=== PATIENT | female | born 1935 | race Caucasian/White ===

== ENCOUNTER 2018-07-06 05:23 | Day surgery (SDC) | payer MEDICARE, SELFPAY ==
[2018-07-03 14:19] VITALS: BMI 18.7
[2018-07-06] VITALS (10 sets, daily range): BP systolic 114–137; BP diastolic 63–81; PULSE 57–65; RESP 16–58; TEMP 36.1–36.6; O2SAT 99–100; BMI 18.7
--- NOTE | 2018-07-06 | COLBX_PTH ---
PATIENT: HEENA SANTAMARIA LOC: EN U#:[id number] AGE/SX: 83/F ROOM: RE07/06/[address]: Dr. Emile Morales MD : 1935 BED: DIS: 07/06/2018 SPEC #: [id number] RECD: 07/06/18 09:20 STATUS: MORA GUANAKO #: [id number] ARACELI: 07/06/18 00:[address]: Emile Morales DEPT: SURGICAL PATHOLOGY RECD BY: Nils Mcgrath ENTERED: 07/06/18 13:23 SP TYPE: COLON BX OTHR DR: Dr. Matt Gonzalez MD Tissues: Cecum, NOS Procedures: Surgery Specimen Level IV HEADER OPERATION: Colonoscopy (MOD) PRE-OP DIAGNOSIS: Iron deficiency anemia, guaiac positive stool TISSUE SUBMITTED: Cecum mass biopsy MICROSCOPIC DIAGNOSIS Cecum mass, biopsy: Invasive adenocarcinoma. SJ:gosia 07/07/18 COMMENT Please make reference to previous specimen ([id number]) sigmoid colon, uterus, tubes, ovaries and portion of descending colon with diagnosis of invasive well to moderately differentiated adenocarcinoma. Case has been reviewed in consultation with Dr. Torres who concurs with the above diagnosis. IDC:AM MICROSCOPIC DESCRIPTION Slides are reviewed. GROSS DESCRIPTION Received in fixative is one container labeled with the patient's name and designated cecal mass biopsy. The specimen consists of multiple irregular fragments of light garibay soft tissue that in aggregate measure 1 x 0.3 x 0.1 cm. The specimen is totally submitted in one cassette. / SJ:rg 07/06/18 TC:0 CPT: 46013
--- NOTE | 2018-07-06 06:48 | OP.ENDO_ITS ---
07/06/2018 Matt Gonzalez Md Re : Colonoscopy procedure for Mei Garvin Dear Lisa This procedure was performed on Friday, July 06, 2018. My impressions and recommendations are as follows: Impressions : - Malignant tumor in the cecum. Biopsied. - Patent end-to-end colo-rectal anastomosis, characterized by healthy appearing mucosa. Recommendations : - Discharge patient to home. - Resume previous diet. - Continue present medications. - Repeat colonoscopy in 1 year for surveillance. - Return to my office in 2 days. My findings are described in the full procedure note, which is enclosed. If I can be of further assistance, please feel free to contact me at Doctor phone number(s): Work: . Sincerely, Emile Morales MD 07/06/2018 6:48:29 AM This report has been signed electronically.
--- NOTE | 2018-07-06 09:30 | CT_ITS ---
STUDY: CT ABDOMEN AND PELVIS WITH CONTRAST REASON FOR EXAM: Female, 83 years old. Abdominal mass, status post colonoscopy. History of colon cancer with colectomy. History of hysterectomy and bladder suspension. RADIATION DOSAGE (If Supplied By Facility): CTDIvol = ( 10.21 ) mGy, DLP = ( 309.91 ) mGycm TECHNIQUE: Transaxial images were obtained from the dome of the diaphragm to the symphysis pubis with oral contrast. 100ml ml of Isovue 370 contrast was administered. Sagittal and coronal images were reconstructed. Individualized dose optimization techniques were used for this CT. COMPARISON: None. FINDINGS: Body wall soft tissues: No acute process. Osseous structures: Osteopenia, scoliosis, prominent multilevel low thoracic and lumbar disc disease and facet arthropathy/hypertrophy contributing to multilevel stenosis. Chronic appearing mild superior plate compression deformities at T12 and L1. Inferior chest: Hyperlucent lung bases suggesting underlying COPD. Normal distal esophagus. Mild cardiomegaly without pericardial effusion. Hepatobiliary: Minimal intrahepatic biliary ductal ectasia. Unremarkable gallbladder. Nondilated common bile duct. A few subcentimeter cystlike foci within the liver parenchyma, too small for definitive characterization, no enhancement features. Pancreas: Minimal ductal ectasia. No significant atrophy or focal lesion. Spleen: Normal. Adrenal glands: Normal. Urogenital: Normal bilateral kidneys with symmetric nephrograms, no significant atrophy, no suspicious lesion. 2 punctate nonobstructing calyceal calculi of the left kidney, one of the right kidney, less than 2. Normal collecting systems, ureters, urinary bladder. Uterus absent. No adnexal mass or cyst. No cul-de-sac free fluid. Pelvic floor and sidewalls and retroperitoneum: No mass or adenopathy. Vasculature: Mild to moderate atherosclerosis. Stomach: No acute process. Small bowel and mesentery: No acute process. Large bowel: Normal appendix. Mild cecal wall thickening, nonspecific. Rectosigmoid anastomosis. Mild diverticulosis of the sigmoid colon without acute diverticulitis. No visible large bowel mass. Free fluid or free air: None. CT/Abdomen/Pelvis WITH Contrast IMPRESSION: No acute abdominopelvic process is evident. Chronic findings detailed above. There is no evidence of bowel mass or adenopathy. There is mild nonspecific thickening of the wall of the cecum. Correlate colonoscopy results. Those results are not available for direct comparison at this time. Electronically Signed: Qamar Li MD at 10:11 EDT Tel , Service support ,
[2018-07-06 13:16] LABS: CREATININE FINGERSTICK 0.9 mg/dL (0.55-1.02); EGFR FINGERSTICK > 60.0000 mL/min (>60)
== END 2018-07-06 09:33 | disposition home or self-care (01) ==
LOC: EN 05:26 → AC 05:27
PROVIDERS: Family Provider Family Medicine; PCP Family Medicine; Referring Provider Family Medicine; Visit Provider Surgery
PROC: 0DJD8ZZ Inspection of Lower Intestinal Tract, Via Natural or Artificial Opening Endoscopic (ICD-10-PCS; CPT 45378; principal; 2018-07-06 06:25)
DX: C18.0 Malignant neoplasm of cecum (principal); D50.0 Iron deficiency anemia secondary to blood loss (chronic); R19.5 Other fecal abnormalities; R97.0 Elevated carcinoembryonic antigen [CEA]; Z98.0 Intestinal bypass and anastomosis status; Z85.038 Personal history of other malignant neoplasm of large intestine; Z86.73 Personal history of transient ischemic attack (TIA), and cerebral infarction without residual deficits
CPT/HCPCS: 45380; 74177; 88305; 99152; J7120; Q9967; A4216

== ENCOUNTER 2018-07-10 05:22 | Inpatient (IN) | payer MEDICARE, SELFPAY ==
[2018-07-08 11:12] VITALS: BMI 18.7
[2018-07-08 12:07] VITALS: BP 113/66; PULSE 68; RESP 16; TEMP 36.9; O2SAT 98; BMI 19.1
--- NOTE | 2018-07-08 12:17 | SDCEKG_ITS ---
Test Reason : Blood Pressure : / mmHG Vent. Rate : 063 BPM Atrial Rate : 063 BPM P-R Int : 234 ms QRS Dur : 098 ms QT Int : 414 ms P-R-T Axes : 065 -57 043 degrees QTc Int : 423 ms Sinus rhythm with 1st degree A-V block Incomplete right bundle branch block Left anterior fascicular block Nonspecific T wave abnormality Abnormal ECG Confirmed by GORGE RANDALL, MIRACLE ([id number]), editor magazine KIMBERLY RAO ([id number]) on 07/13/2018 10:35:44 AM Referred By: Emile Morales Confirmed By:MIRACLE PENNINGTON MD
[2018-07-08 12:45] LABS: Hemoglobin 9.6 g/dl (12.0-15.0); Mean Corpuscular Hgb 30.5 pg (27.0-32.0); Mean Corpuscular Volume 95.2 fL (81-99); Mean Platelet Vol. 8.7 fl (6.2-12.0); Platelet Count 369 K/mm3 (150-450); RBC Distribution Width CV 15.4 % (11.6-14.6); RBC Distribution Width SD 53.5 fl (35.1-43.9); Red Blood Count 3.15 M/mm3 (4.2-5.4); White Blood Count 5.7 K/mm3 (4.4-11.0)
[2018-07-08 12:47] LABS: Scan Indicated on CBC? Y/N NO
[2018-07-08 12:54] LABS: Prothrombin Time (Protime)PT. 13.4 SECONDS (11.7-14.9)
[2018-07-08 13:09] LABS: Anion Gap 6 (5-15); BUN 10 mg/dL (7-18); BUN/Creat Ratio 13.9 RATIO (10-20); Calcium,Total 8.8 mg/dL (8.5-10.1); Chloride 104 mmol/L (98-107); Creatinine, Serum 0.72 mg/dL (0.55-1.02); EST Glomerular Filtration Rate 82 mL/min (>60); Est Glom Filt Rate - Afr Amer 100 mL/min (>60); Estimated Creatinine Clearance 32.91 ml/min; Glucose 111 mg/dL (74-106); Potassium 3.9 mmol/L (3.5-5.1); Sodium Level 140 mmol/L (136-145)
[2018-07-10] VITALS (12 sets, daily range): BP systolic 89–144; BP diastolic 56–85; PULSE 60–71; RESP 14–18; TEMP 36.2–37.1; O2SAT 92–100; BMI 19.1
--- NOTE | 2018-07-10 | COL._PTH ---
PATIENT: HEENA SANTAMARIA LOC: MS3 U#:[id number] AGE/SX: 83/F ROOM: MS309 RE07/10/[address]: Dr. Emile Morales MD : 1935 BED: 1 DIS: 07/12/2018 SPEC #: [id number] RECD: 07/10/18 13:35 STATUS: MORA REHawk #: [id number] ARACELI: 07/10/18 00:[address]: Emile Morales DEPT: SURGICAL PATHOLOGY RECD BY: Nils Mcgrath ENTERED: 07/10/18 13:35 SP TYPE: COLON OTHR DR: Dr. Matt Gonzalez MD Tissues: Colon, NOS Procedures: Surgery Specimen Level HEADER OPERATION: ERAS, laparoscopic hemicolectomy PRE-OP DIAGNOSIS: Malignant neoplasm of ascending colon TISSUE SUBMITTED: Right ascending colon MICROSCOPIC DIAGNOSIS Right ascending colon, segmental colectomy: Invasive moderately differentiated adenocarcinoma. See cancer checklist below. AM:gosia 07/14/18 COMMENT COLON CANCER SUMMARY: Specimen - ascending colon Procedure - right hemicolectomy Tumor site - cecum Tumor size - 5.5 x 3 x 1 cm Macroscopic tumor perforation - not identified Histologic type - adenocarcinoma with mucinous features Histologic grade - low grade (moderately differentiated) Microscopic tumor extension - tumor invades through muscularis propria and into subserosal adipose tissue. Margins: Proximal margin - uninvolved by invasive carcinoma Distal margin - uninvolved by invasive carcinoma Closest mucosal margin - proximal margin (4 cm) Circumferential margin - free of carcinoma Treatment effect - unknown Lymph-Vascular invasion - not identified Perineural invasion - not identified Tumor deposits - not identified Lymph nodes: Number of lymph nodes examined - 17 Number of lymph nodes involved by carcinoma- 2 Ancillary studies: See microsatellite instability study by IHC ([id number]) for complete details. Negative (no loss of mismatch protein; no microsatellite instability detected). Immunohistochemistry Studies for Mismatch Repair Proteins: MLH1 - Intact nuclear positivity, tumor cells MSH2 - Intact nuclear positivity, tumor cells MSH6 - Intact nuclear positivity, tumor cells PMS2 - Intact nuclear positivity, tumor cells PATHOLOGIC STAGE: pT3 N1b Mx The above summary is in compliance with [employer] [place] [employer] (CAP) Cancer Protocols Checklist and [place] Joint Committee on Cancer (AJCC), Staging Manual, 8th Ed. The largest focus of metastatic carcinoma measures 1.5 cm Reference is made to the patient's previous cecal mass biopsy from 07/07/18 ([id number]) in which invasive adenocarcinoma was identified. Case has been reviewed in consultation with Dr. Campos who concurs with the above diagnosis. IDC:KARLEY MICROSCOPIC DESCRIPTION Slides are reviewed. GROSS DESCRIPTION Received in fixative is one container labeled with the patient's name and designated right ascending colon. The specimen consists of a right hemicolectomy specimen containing cecum with ascending colon, segment of small intestine and appendix. The cecum with ascending colon measures 18 cm in length, segment of small intestine measures 3.5 cm in length and appendix measures 6.5 cm in length and 0.2 to 0.5 cm in length. Both resection margins are stapled. 12 cm away from the distal resection margin and 4 cm away from the proximal resection margin is an ulcerated tumor mass in the cecum also involving ileocecal valve measuring 5.5 x 3 x 1 cm. No additional lesions are identified. The pericolonic adipose tissue is fixed in lymph node revealing solution. The serosal surface overlying the tumor mass is inked black. Sections will be submitted after overnight fixation. / SJ:gosia 07/10/18 Sections of the appendix reveal unremarkable cut surfaces. The serosa overlying the tumor shows buckling and inked black. Sections of the tumor mass reveal full thickness of the bowel wall. Sections of pericolonic adipose tissue reveal multiple lymph nodes. The largest lymph node measures 1.5cms in greatest dimension.Proposal Lead Writer sections are submitted as follows: 1 - appendix, 2 - resection margins, 3-7 - tumor (cassette 7 contains tumor in the area of ileocecal valve), 8 - distribution sales representative section of small and large intestine, 9 - one serially sectioned lymph node, 10 - multiple lymph nodes, 11 - multiple lymph nodes, 12 - one bisected lymph node. / SJ:gosia 07/13/18 TC:0 CPT: 61505
--- NOTE | 2018-07-10 | IMM_PTH ---
PATIENT: HEENA SANTAMARIA LOC: MS3 U#:[id number] AGE/SX: 83/F ROOM: MS309 RE07/10/[address]: Dr. Emile Morales MD : 1935 BED: 1 DIS: 07/12/2018 SPEC #: [id number] RECD: 07/14/18 12:28 STATUS: MORA REQ #: [id number] ARACELI: 07/10/18 00:[address]: Emile Morales DEPT: IMMUNOHISTOCHEMISTRY RECD BY: Elina Bashir ENTERED: 07/14/18 12:29 SP TYPE: IMMUNO OTHR DR: Dr. Matt Gonzalez MD Tissues: Right colon Procedures: MSH2 (add) MLH-1 (add) MSH6 (add) Anti-PMS2 (add) ONEAL-2 (add) HER2 ANA (add) P53 (add) KI-67 (initial) PHYSICIAN & INSTITUTION [place] [id number] SPECIMEN INFORMATION: Tissue Source: Right ascending colon Clinical Info: Malignant neoplasm of ascending colon Specimen Number: [id number] #3 CPT code: 22424, 31507 x7 METHODOLOGY: Deparaffinized sections of prefer/formalin-fixed tissue or PAP/DQ stained slides are incubated with monoclonal/polyclonal antibodies/oligonucleotide probes. Localization is made via biotin free immunoperoxidase method. Appropriate controls are performed and reacted as expected. Results on target cell population are indicated in the following table: RESULTS: ANTIBODY / CLONE RESULT Block 3 Ki-67 (30-9) positive, moderate to high P53 (DO-7) positive ONEAL-2 (SP21) positive MLH-1 (M1) positive MSH2 (25D12) positive MSH6 (44) positive PMS2 (ZGS5137) positive Her-2neu (CB11) negative These tests were developed and their performance characteristics determined by [facility]. They may not have been cleared or approved by the U.S. Food and Drug Administration. The FDA has determined that such clearance or approval is not necessary. INTERPRETATION: Right ascending colon, hemicolectomy: Invasive adenocarcinoma. Result of Microsatellite Instability Study: Negative (no loss of mismatch protein; no microsatellite instability detected). AM:gosia 07/15/18
[2018-07-10] MEDS: Gabapentin 600 MG Tablet PO (06:02)
[2018-07-10] MEDS: Acetaminophen 500 MG Tablet 1000 MG PO (06:02)
[2018-07-10 06:20] LABS: Bedside Glucose 106 mg/dL (70-110)
[2018-07-10] MEDS: Lactated Ringers 1,000 ML 40 ML IV ×2 (06:23→19:32)
[2018-07-10] MEDS: Magnesium Sulfate 4gm/100mL 4 GM/100 ML IV.SOLN. IV (06:23)
--- NOTE | 2018-07-10 06:50 | DCINST_ITS ---
Discharge Diet: Light diet - advance as tolerated - if you have questions about your diet instructions, please talk to you doctor. Discharge Activity: May Not Drive - for 1 week or while taking narcotic pain medicine. May shower in (days): 1 Lifting Restrictions: 10 pounds Call your doctor if your incision/area has: Continuous Slow Oozing, Sudden Increased Bleeding, Increased Pain/ Swelling, Increased Redness, Foul Smelling Discharge Call your doctor if you observe: Fever of 101 or Higher Suture Line Care: Avoid Pulling/Pushing, Avoid Pinching/Bending Additional Dressing/Incision Instructions:: Change or remove dressing in 4 days. Leave steri-strips in place for 1 week. Allergies/Adverse Reactions: Allergies No Known Allergies Allergy (Verified 07/08/18 11:54) Medications to take at Discharge calcium gluconate 45 mg (500 mg) tablet 45 mg PO TID tab 07/03/18 coenzyme Q10 100 mg capsule 100 mg PO DAILY 07/03/18 ferrous sulfate 325 mg (65 mg iron) tablet 325 mg PO BID tab 07/03/18 lutein 20 mg capsule 20 mg PO DAILY 07/03/18 melatonin 3 mg tablet 3 mg PO HS PRN 07/03/18 Multivitamin with Minerals [Multiple Vitamin] 1 each PO DAILY 07/08/18 Primary Care Physician: Matt Gonzalez MD [Primary Care Provider] - Test Results: Test results from this visit will be discussed in further detail at your follow- up appointment, if applicable. Please Follow Up With: Emile Morales MD - [phone] When: Call to make an appointment to be seen in about 10 days.
[2018-07-10] MEDS: Lidocaine/D5W 2,000 MG/250 ML IV.SOLN 2000 MG (07:35)
[2018-07-10] MEDS: Bupivacaine 0.25% 30 ML Vial (08:45)
[2018-07-10] MEDS: BUPIVACAINE LIPOSOME/PF 20 ML VIAL OPERA.SITE (08:45)
--- NOTE | 2018-07-10 09:53 | PCM.OPRPT ---
Problem List (1) Colon cancer Status: Acute Qualifiers: Colon location: ascending Report of Operation Date of Procedure: 07/10/18 Pre-Operative Diagnosis: Cecal adenocarcinoma Post-Operative Diagnosis: same Surgery/Procedure Performed:: Laparoscopic right colectomy, bilateral subcostal tap block Description of Surgical Findings:: Timeout and informed consent was obtained. 83-year-old female taken out from placement table underwent general endotracheal intubation anesthesia. Cefotetan 2 g given intravenously preoperatively. The abdomen sterilely prepped and draped. 0.25% Marcaine 60 cc was mixed with 20 cc of Exparel was used as local anesthetic. Skin sites were pre-anesthetized. Because of the patient's body habitus a vertical infraumbilical midline incision was created sharply dissecting down carried down through the subtenons tissue telemeter trocar was placed under position of the peritoneum was incised the abdomen was insufflated CO2 to a pressure of 10 mm sacral pressure primary trocar was placed in the epigastrium on the right lower quadrant the patient had had a previous low anterior resection there were some adhesions of small bowel to the anterior abdominal wall these were lysed with sharp scissor dissection completely releasing those adhesions of small bowel. The colon was inspected the significant mass involving the cecum identified. The white line of Toldt now was incised its noted that the patient was kyphotic scoliotic and so the anatomy was somewhat challenging. There was some adhesions in the right lower quadrant related to the patient's previous hysterectomy. Tediously the hepatic flexure ascending colon and cecum were carefully and tediously elevated. Sharp scissor dissection and harmonic scalpel dissection was performed. There were adhesions of the previous tubal transected to the cecum these had to be released. She had a very elongated appendix that had to be released as well. Having done much of that dissection then I went to the ileocolonic vessels put them on stretch incised the peritoneum with harmonic scalpel. I then secured those vessels with 2 hemo-lock clips proximally and one distally prior to transecting it a lot of blunt dissection. Now had the entire right colon elevated. The abdomen was allowed to deflate the CO2. The infraumbilical incision was slightly lengthened. A small wound protector was placed. The right colon was exited. The small bowel and proximal transverse colon were both transected using a DIANA-75 stapler. Enterotomies were created in a [id number] fashion in the 75 stapler was used to create a functional end to end anastomosis by placing the terminal ileum [id number] with the proximal transverse colon. The enterotomy sites were closed with a TA 60. I did invert that suture line with a running 4-0 silk Lembert style suture. I closed the mesenteric trap with a running 2-0 chromic. All structures appear to be nicely viable the bowel head in particular the small bowel had peristalsis. There was minimal blood loss whatsoever. There was no spillage. The bowel was placed back within the abdomen. Under direct incision and a bilateral tap block was performed. Local was used bilaterally at the subcostal margin and then in the left and right upper quadrant to perform under laparoscopic visualization a bilateral tap block in between the layers of the oblique musculature. Having achieved that now the wound protector was removed gowns and gloves were changed. The trochars had been removed. The midline fascia was closed with a running 0 PDS in a small bite fashion. The mark-incisional area was anesthetized with a local as well. Skin edges were approximated with interrupted or running septic or 4-0 Monocryl. Steri-Strips and Telfa and OpSite dressings were applied. Sponge and instrument and needle counts reported the surgeon be correct. Specimen includes right colon and staple resection. Drains none. Blood loss minimal. The patient was taken to the recovery area in satisfactory condition no apparent complication Emile Morales M.D., F.A.C.S. Type of Anesthesia:: General Anesthesiologist: Emerald Mcallister
--- NOTE | 2018-07-10 13:30 | CASEMGMT ---
RN CM Face to Face with patient for initial transition planning/care coordination assessment. RN CM introduced self and role at [facility]. Patient lying in bed, alert and oriented, daughter and granddaughter at bedside. Patient willing to participate in assessment and is able to answer all questions appropriately. Care providers, pharmacy, and demographics verified. Patient wishes to discharge home, denies need for home health at this time. Patient states he has no further needs or concerns at this time. CM to follow for discharge planning needs that may arise. PCP: Lisa Specialists: None Preferred Pharmacy: [facility] in [place] Insurance: [facility] Prescription Benefit: yes Living Will/HPOA: yes, son Chucky Garvin LNOK: Son, Daughters Living Arrangements: Patient lives with son in 2 story home with bed and bath on first floor. Patient states she is independent with self care. Transportation: family DME/HHC: Patient states she has a cane. Disposition Plan: Patient to discharge home with family support and follow-up plans in place. Ramona YOUNGN, RN, CM
--- NOTE | 2018-07-10 14:16 | NURSING ---
right arm bp- rechecked in left arm. see vitals.
[2018-07-10] MEDS: Ondansetron 4 MG/2 ML Vial IV (15:52)
[2018-07-10] MEDS: 0.9% NaCl Peripheral Flush Adult/Peds IV (15:52)
--- NOTE | 2018-07-10 18:50 | PCM.PN.BLA ---
Progress Note Nausea, weakness No abdominal pain Continue care
[2018-07-10] MEDS: Ensure Clear 120 ML Liquid PO (19:32)
--- NOTE | 2018-07-10 21:13 | NURSING ---
Patient assisted up to the BSC and then assisted to the chair, patient denied feeling dizzy when up. Will continue to monitor.
--- NOTE | 2018-07-10 22:00 | NURSING ---
Patient assisted back from chair to bathroom and then ambulated in the hallway with this RN for a short distance, patient tolerated fairly.
[2018-07-11 02:21] VITALS: BP 97/52; PULSE 62; RESP 18; TEMP 36.8; O2SAT 96
[2018-07-11] MEDS: Enoxaparin 30 MG/0.3 ML Syringe SC (05:30)
--- NOTE | 2018-07-11 05:35 | NURSING ---
Patient ambulated in hallway with RIB TRIM SEPARATOR this AM. This RN ordered patients breakfast.
--- NOTE | 2018-07-11 07:44 | PCM.PN.SRG ---
Subjective: Pt feeling much better than yesterday No nausea, she is hungry No pain - Physical Exam General: Alert, Oriented x3, Cooperative Lungs: Clear to auscultation Abdomen: Bowel Sounds Present, Soft, Non Tender Vital Signs Temp Pulse Resp BP Pulse Ox 98.3 F 62 18 97/52 L 96 07/11/18 02:21 07/11/18 02:21 07/11/18 02:21 07/11/18 02:21 07/11/18 02:21 Oxygen Flow Rate (L/min) 6 Oxygen Delivery Method Room Air Weight: 107 lb 12.897 oz Body Mass Index (BMI) 19.1 Intake and Output for Last 24 Hours 07/09/18 07/10/18 07/11/18 23:59 23:59 23:59 Intake Total 1239 / 1239 299 / 299 Output Total 100 / 100 400 / 400 Balance 1139 / 1139 -101 / -101 Laboratory Tests Past 24 Hrs 07/10/18 06:40 Blood Type B POSITIVE Antibody Screen NEGATIVE Medical Necessity - Tobacco Use Smoking Status: Never smoker Tobacco Use: Non-smoker Assessment/Plan All Active Problems (Last Updated 07/03/18 @ 14:19 by Mariana Vallecillo) Colon cancer (Acute) Guaiac positive stools (Acute) Elevated CEA (Acute) History of malignant neoplasm of colon (Acute) Iron deficiency anemia (Acute) Very strong progress Will start tansitional diet Possibly home later today
[2018-07-11 08:00] LABS: Absolute Lymphocyte Count 0.82 X10^3/ul (0.83-4.51); Absolute Neutrophil Count 9.6 X10^3/uL (2.0-7.7); Eosinophil# 0.01 X10^3/uL; Eosinophils% 0.1 % (0-5); Hematocrit 26.2 % (37-47); Hemoglobin 8.4 g/dl (12.0-15.0); Lymphocyte # 0.82 X10^3/ul (4.0); Lymphocyte % 7.3 % (19-41); Mean Corp Hgb Conc 32.1 g/gl (32-36); Mean Corpuscular Hgb 30.1 pg (27.0-32.0); Mean Corpuscular Volume 93.9 fL (81-99); Mean Platelet Vol. 8.7 fl (6.2-12.0); Monocyte# 0.81 X10^3/uL; Monocyte% 7.2 % (0-10); Neutrophil # 9.62 X10^3/uL (2.7-7.7); Neutrophil % 85.3 % (47-70); Platelet Count 328 K/mm3 (150-450); RBC Distribution Width CV 15.5 % (11.6-14.6); Red Blood Count 2.79 M/mm3 (4.2-5.4); White Blood Count 11.3 K/mm3 (4.4-11.0)
[2018-07-11 08:05] LABS: POSITIVE COUNT NO; POSITIVE DIFFERENTIAL NO; POSITIVE MORPHOLOGY NO
[2018-07-11 08:17] LABS: Anion Gap 5 (5-15); BUN 7 mg/dL (7-18); BUN/Creat Ratio 9.4 RATIO (10-20); Calcium,Total 7.6 mg/dL (8.5-10.1); Chloride 105 mmol/L (98-107); Creatinine, Serum 0.74 mg/dL (0.55-1.02); EST Glomerular Filtration Rate 79 mL/min (>60); Est Glom Filt Rate - Afr Amer 96 mL/min (>60); Estimated Creatinine Clearance 32.91 ml/min; Glucose 92 mg/dL (74-106); Potassium 3.6 mmol/L (3.5-5.1); Sodium Level 137 mmol/L (136-145)
[2018-07-11 09:00] VITALS: BP 92/44; PULSE 68; RESP 16; TEMP 36.7; O2SAT 95
[2018-07-11] MEDS: Ensure Clear 120 ML Liquid PO (14:01)
[2018-07-11 14:03] VITALS: BP 98/54; PULSE 70; RESP 18; TEMP 37; O2SAT 92
[2018-07-11] MEDS: Acetaminophen 325 MG Tablet 650 MG PO (19:11)
[2018-07-11 20:17] VITALS: BP 104/58; PULSE 74; RESP 16; TEMP 37.3; O2SAT 94
[2018-07-12 02:33] VITALS: BP 120/60; PULSE 68; RESP 16; TEMP 36.9; O2SAT 94
[2018-07-12] MEDS: Enoxaparin 30 MG/0.3 ML Syringe SC (05:53)
--- NOTE | 2018-07-12 08:23 | PCM.PN.SRG ---
Subjective: Pain is well controlled. Having bowel movements. No nausea no vomiting. Objective: Abdomen is soft slightly distended no rebound guarding or peritoneal signs are identified. - Physical Exam Vital Signs Temp Pulse Resp BP Pulse Ox 98.5 F 68 16 120/60 94 07/12/18 02:33 07/12/18 02:33 07/12/18 02:33 07/12/18 02:33 07/12/18 02:33 Oxygen Flow Rate (L/min) 6 Oxygen Delivery Method Room Air Weight: 107 lb 12.897 oz Body Mass Index (BMI) 19.1 Intake and Output for Last 24 Hours 07/10/18 07/11/18 07/12/18 23:59 23:59 23:59 Intake Total 1239 / 1239 1061 / 1061 235 / 235 Output Total 100 / 100 400 / 400 Balance 1139 / 1139 661 / 661 235 / 235 Medical Necessity - Tobacco Use Smoking Status: Never smoker Tobacco Use: Non-smoker Assessment/Plan All Active Problems (Last Updated 07/03/18 @ 14:19 by Mariana Vallecillo) Colon cancer (Acute) Guaiac positive stools (Acute) Elevated CEA (Acute) History of malignant neoplasm of colon (Acute) Iron deficiency anemia (Acute) Excellent progress okay to be discharged today.
--- NOTE | 2018-07-12 08:26 | DCINST_ITS ---
Discharge Diet: Light diet - advance as tolerated - if you have questions about your diet instructions, please talk to you doctor. Discharge Activity: May Not Drive - for 1 week or while taking narcotic pain medicine. May shower in (days): 1 - now Call your doctor if your incision/area has: Continuous Slow Oozing, Sudden Increased Bleeding, Increased Pain/ Swelling, Increased Redness, Foul Smelling Discharge Call your doctor if you observe: Fever of 101 or Higher Suture Line Care: Avoid Pulling/Pushing, Avoid Pinching/Bending Additional Dressing/Incision Instructions:: Change or remove dressing in 4 days. Leave steri-strips in place for 1 week. Allergies/Adverse Reactions: Allergies No Known Allergies Allergy (Verified 07/08/18 11:54) Medications to take at Discharge calcium gluconate 45 mg (500 mg) tablet 45 mg PO TID tab 07/03/18 coenzyme Q10 100 mg capsule 100 mg PO DAILY 07/03/18 ferrous sulfate 325 mg (65 mg iron) tablet 325 mg PO BID tab 07/03/18 lutein 20 mg capsule 20 mg PO DAILY 07/03/18 melatonin 3 mg tablet 3 mg PO HS PRN 07/03/18 Multivitamin with Minerals [Multiple Vitamin] 1 each PO DAILY 07/08/18 Primary Care Physician: Matt Gonzalez MD [Primary Care Provider] - Test Results: Test results from this visit will be discussed in further detail at your follow- up appointment, if applicable. Please Follow Up With: Emile Morales MD - [phone] When: Call to make an appointment to be seen in about 10 days.
[2018-07-12 10:07] VITALS: BP 107/65; PULSE 76; RESP 18; TEMP 36.9; O2SAT 95
== END 2018-07-12 12:16 | disposition home or self-care (01) | DRG 331 ==
LOC: MS3 05:25
PROVIDERS: Anesthesiology; Admitting Provider Surgery; Family Provider Family Medicine; PCP Family Medicine; Referring Provider Surgery; Visit Provider Surgery
PROC: 0DTF4ZZ Resection of Right Large Intestine, Percutaneous Endoscopic Approach (ICD-10-PCS; CPT 44205; principal; 2018-07-10 06:55)
DX: C18.0 Malignant neoplasm of cecum (principal); D50.9 Iron deficiency anemia, unspecified; Z90.49 Acquired absence of other specified parts of digestive tract; Z85.038 Personal history of other malignant neoplasm of large intestine
CPT/HCPCS: 36415; 80048; 82378; 82962; 85025; 85027; 85610; 85730; 86850; 86900; 88309; 88341; 88342; 93005; J7050; J7120; A4216; J2405

== ENCOUNTER → 2018-07-16 11:29 | Outpatient (CLI) | payer MEDICARE, SELFPAY ==
[2018-07-16 11:24] VITALS: BMI 19.1
[2018-07-16 12:02] LABS: Absolute Lymphocyte Count 0.62 X10^3/ul (0.83-4.51); Absolute Neutrophil Count 3.4 X10^3/uL (2.0-7.7); Basophil# 0.01 X10^3/uL; Basophil% 0.2 % (0-1); Eosinophil# 0.26 X10^3/uL; Eosinophils% 5.4 % (0-5); Hematocrit 31.2 % (37-47); Hemoglobin 9.8 g/dl (12.0-15.0); Lymphocyte # 0.62 X10^3/ul (4.0); Lymphocyte % 12.9 % (19-41); Mean Corp Hgb Conc 31.4 g/gl (32-36); Mean Corpuscular Hgb 28.7 pg (27.0-32.0); Mean Corpuscular Volume 91.5 fL (81-99); Mean Platelet Vol. 8.6 fl (6.2-12.0); Monocyte# 0.54 X10^3/uL; Monocyte% 11.3 % (0-10); Neutrophil # 3.37 X10^3/uL (2.7-7.7); Neutrophil % 70.2 % (47-70); Platelet Count 422 K/mm3 (150-450); RBC Distribution Width CV 15.1 % (11.6-14.6); RBC Distribution Width SD 50.9 fl (35.1-43.9); Red Blood Count 3.41 M/mm3 (4.2-5.4); White Blood Count 4.8 K/mm3 (4.4-11.0)
[2018-07-16 12:08] LABS: POSITIVE COUNT NO; POSITIVE DIFFERENTIAL NO; POSITIVE MORPHOLOGY NO
[2018-07-17 13:02] LABS: Carcinoembryonic Antigen 6.1 ng/mL (0.0-4.7)
== END ==
PROVIDERS: Surgery; Family Provider Family Medicine; PCP Family Medicine; Referring Provider Family Medicine; Visit Provider Family Medicine
DX: D64.9 Anemia, unspecified (principal); C18.9 Malignant neoplasm of colon, unspecified
CPT/HCPCS: 36415; 82378; 85025

== ENCOUNTER → 2022-05-28 | Outpatient (REF) | payer MEDICARE, SELFPAY ==
[2022-05-28 09:06] LABS: Hematocrit 40.2 % (37-47); Hemoglobin 12.5 g/dL (12.0-15.0); Mean Corp Hgb Conc 31.1 g/dL (32-36); Mean Corpuscular Hgb 29.3 pg (27.0-32.0); Mean Corpuscular Volume 94.4 fL (81-99); Mean Platelet Vol. 9.9 fl (6.2-12.0); Platelet Count 362 K/mm3 (150-450); RBC Distribution Width CV 14.7 % (11.6-14.6); RBC Distribution Width SD 51.4 fl (35.1-43.9); Red Blood Count 4.26 M/mm3 (4.2-5.4); White Blood Count 7.8 K/mm3 (4.4-11.0)
[2022-05-28 09:19] LABS: Anion Gap 5 (5-15); BUN 18 mg/dL (7-18); BUN/Creat Ratio 30.4 RATIO (10-20); Calcium,Total 9.1 mg/dL (8.5-10.1); Chloride 102 mmol/L (98-107); Creatinine, Serum 0.59 mg/dL (0.55-1.02); EST Glomerular Filtration Rate 102 mL/min (>60); Est Glom Filt Rate - Afr Amer 124 mL/min (>60); Glucose 105 mg/dL (74-106); Potassium 4.5 mmol/L (3.5-5.1); Sodium Level 137 mmol/L (136-145)
== END ==
LOC: OLS.ACH 05:00
PROVIDERS: PCP Family Medicine; Visit Provider Internal Medicine
DX: J18.1 Lobar pneumonia, unspecified organism (principal)
CPT/HCPCS: 36415; 80048; 85027

== ENCOUNTER → 2022-06-17 | Outpatient (REF) | payer MEDICARE, SELFPAY | LOC: OLS.ACH 15:45 | PROVIDERS: PCP Family Medicine; Visit Provider Internal Medicine | DX: R05.9 Cough, unspecified (principal); R09.81 Nasal congestion | CPT/HCPCS: 87633; 87635; U0003; U0005 ==